=== PATIENT | female | born 1990 | race Caucasian/White ===

== ENCOUNTER 2019-05-02 12:32 | Emergency (ER) | payer BC ==
[~2019-05-02] VITALS: Ht 165.1 cm; Wt 77.1 kg
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
--- NOTE | 2019-05-02 13:50 | NUR ---
PATIENT WENT FOR CT OF THE HEAD AT THIS TIME
--- NOTE | 2019-05-02 14:15 | NUR ---
PATIENT GIVEN AND SIGNED DISCHARGE INSTRUCTIONS.
== END 2019-05-02 14:16 | disposition home or self-care (01) ==
LOC: ER 12:32
DX: S16.1XXA Strain of muscle, fascia and tendon at neck level, initial encounter (principal); V53.5XXA Driver of pick-up truck or van injured in collision with car, pick-up truck or van in traffic accident, initial encounter; Y93.89 Activity, other specified; Y92.89 Other specified places as the place of occurrence of the external cause; Y99.8 Other external cause status
CPT/HCPCS: 70450; 72072; A4663